=== PATIENT | female | born 1995 | race Caucasian/White ===

== ENCOUNTER 2019-05-08 08:02 | Outpatient (CLI) | payer OTHER, SELFPAY ==
--- NOTE | 2019-05-15 23:57 | SLEEP_ITS ---
Overnight Nocturnal Polysomnogram DATE OF STUDY: 05/08/2019 ORDERING PHYSICIAN: Luli Suárez M.D. REASON FOR THE STUDY: Prior home sleep test on February 27, 2019 without significant sleep-disordered breathing, the patient having significant symptoms suggestive of narcolepsy with daytime somnolence. HISTORY: This patient is a 23-year-old female, 64 inches tall, weighing 190 pounds with a body mass index of 32.6. On a prior home sleep test February 27, 2019, she had an apnea-hypopnea index of 3.7 with a minimum desaturation of 89%. This test was performed due to complaints of nonrestorative sleep, severe nightmares, and inability to return to sleep at night, multiple nighttime awakenings with rare snoring. She complained of occasionally sweating excessively at night and noticing her heart pounding irregularly at night on occasion. She had occasional episodes of falling asleep during the day, frequently involuntarily, but only rarely while driving. She occasionally has fallen asleep during physical effort. She frequently has loss of muscle tone with strong emotion and constantly has daytime difficulties due to excessive sleepiness. 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 She frequently has vivid dreamlike scenes upon awakening or falling asleep. She complained of kicking at night and constantly having crawling and aching feelings in her legs. She constantly grinds her teeth at night and is bothered by pain during the day. Symptoms included fatigue, memory problems, insomnia, nightmares, headaches, and feelings of tension. Normal bedtime is 9 p.m. taking a half hour to fall asleep or up to an hour. She typically wakes 5 to 6 times at night on average for 20 minutes to an hour. While awake, she will lie in bed and try to fall asleep again. She awakens in the morning at 6 a.m. She estimates 5 hours of sleep at night, although she is in bed for 9 hours. She is too tired to socialize. She does take naps and a short nap is not refreshing. She is drowsy in the morning for 3 hours or longer. MEDICAL COMORBIDITIES: No chronic medical comorbidities. MEDICATIONS: 1. [id number] melatonin 4 gummies nightly. 2. Diphenhydramine 25 mg 2 nightly. HABITS: Never smoked tobacco. Fourteen ounces of caffeine per day. No alcohol or recreational drugs. DESCRIPTION OF THE STUDY: On the Register Sleepiness Scale, her score was 17. This was conducted as a full night attended nocturnal polysomnogram using the [place] multiple channel system including EOG, EEG, submental EMG, EKG, nasal and oral airflow using thermistors and nasal pressure sensors, chest and abdominal belts, body position data, pulse oximetry, and video monitoring. The study was scored using [facility] guidelines. Duration of this study was 452 minutes. Sleep time was 433.8 minutes. Sleep efficiency was 95.8%. Sleep latency was 5.9 minutes. REM latency was 101 minutes. She had 20 awakenings and spent 2.9% of the study awake after sleep onset, 13 minutes. Sleep architecture showed 4.1% stage I sleep, 49.1% stage II sleep, 24.1% stage III sleep, and 19.8% stage REM. Sleep architecture was overall fairly normal. She had 4 REM cycles and several shifts between sleep and wakefulness. However, overall the sleep architecture was generally normal. The apnea-hypopnea index was 1.5. The obstructive index was 1.2 and the central index was 0.1. She had 1 obstructive hypopnea in supine REM for an index of 2.3, 1 mixed apnea and 4 obstructive hypopneas in non-supine REM for an index of 4.8, 2 obstructive hypopneas in supine non-REM for an index of 2.1 and 2 obstructive hypopneas in non-supine non-REM for an index of 0.6. The supine index is 2.2. Non-supine index is 1.4. Lowest desaturation 91%. She spent no time below 88
== END 2019-05-08 08:03 | disposition home or self-care (01) ==
LOC: ANHCSM 08:02
PROVIDERS: PCP Family Medicine; Visit Provider Family Medicine
DX: G47.9 Sleep disorder, unspecified (principal)
CPT/HCPCS: 95810

== ENCOUNTER 2019-08-08 19:10 | Emergency (ER) | payer OTHER, SELFPAY ==
[2019-08-08 19:29] VITALS: BP 137/73; PULSE 97; RESP 16; TEMP 37.5; O2SAT 99
--- NOTE | 2019-08-08 19:38 | ED.BACK ---
HPI - Back Pain/Injury General Chief Complaint: Back Pain/Injury Stated Complaint: back spasms Time Seen by Provider: 08/08/19 19:30 Source: patient Mode of arrival: ambulatory Limitations: no limitations History of Present Illness HPI Narrative: Althea Allan is a 23 yo female with PMH chronic back pain who comes to express care with back spasms. She has a telemedicine conference with her doctor tomorrow but is unable to tolerate the pain until then, unable to get a massage due to covid situation. Has been on has been unable to manage pain with Advil, ice Related Data Home Medications Medication Instructions Recorded Confirmed etonogestrel [Nexplanon] 1 implant SUBDERMAL ONCE 08/08/19 08/08/19 Allergies Allergy/AdvReac Type Severity Reaction Status Date / Time No Known Allergies Allergy Verified 08/08/19 19:35 Review of Systems Review of Systems: Narrative: CONSTITUTIONAL: Denies fever, chills, sweats. EYES: Denies visual changes, redness, discharge. ENT: Denies rhinorrhea, congestion, sore throat, otalgia. CARDIOVASCULAR: Denies chest pain, palpitations, edema. RESPIRATORY: Denies dyspnea, wheezing, cough GASTROINTESTINAL: Denies abdominal pain, nausea, vomiting, diarrhea. GENITOURINARY: Denies dysuria, hematuria, abnormal discharge SKIN: Denies rash or itching. NEUROLOGIC: Denies numbness, or focal weakness. PSYCHIATRIC: Denies anxiety or depression. Back: Tender, obvious spasming at right thoracic level PMFSH Past Medical History Medical History (Updated 08/08/19 @ 19:46 by Ethel Melissa CNP) Endometriosis Insomnia Family History Family History Grandparent Family history of mental disorder Mother Family history of mental disorder Family history of bipolar disorder Family history of alcoholism Family history of seizure disorder Father Family history of alcoholism Family history of cardiovascular disease Social History Social History Smoking status: Never smoker Second hand tobacco smoke exposure: No Alcohol intake: current Gender identity (if verbalized by the patient): Female Comments At time of signature, I agree with nursing past medical, surgical, social and family history. There is no relevant family history pertinent to the presenting complaint. Exam Narrative: Exam Narrative: GENERAL: This is a well-nourished, well-developed patient, in moderate distress. HEAD: normocephalic, atraumatic. EYES: Sclera clear/white. Vision is grossly intact. EARS: External ears normal, . Hearing grossly intact. NOSE: External nose normal without nasal discharge, nares without redness, no rhinorrhea. THROAT: Mucous membranes moist, posterior pharynx NECK: Neck supple, CARDIOVASCULAR: Regular rate and rhythm without murmurs, gallops, or rubs. RESPIRATORY: Clear to auscultation. Breath sounds equal bilaterally. No wheezes, rales, or rhonchi. GASTROINTESTINAL: Abdomen soft, SKIN: warm, intact with no suspicious lesions or rash, good texture and turgor. NEURO: awake, alert, and oriented to person, place and time. There were no obvious focal neurologic abnormalities. Steady gait EXTREMITIES: Normal range of motion. BACK:tender at right thoracic level , spasming, without deformity Course Course Emergency Course: Patient started on muscle relaxant baclofen, will talk with in the morning Vital Signs Vital signs: Vital Signs Temperature 99.5 F 08/08/19 19:29 Pulse Rate 97 08/08/19 19:29 Respiratory Rate 16 08/08/19 19:29 Blood Pressure 137/73 08/08/19 19:29 Pulse Oximetry 99 08/08/19 19:29 Temperature 99.5 F 08/08/19 19:29 Pulse Rate 97 08/08/19 19:29 Respiratory Rate 16 08/08/19 19:29 Blood Pressure 137/73 08/08/19 19:29 Pulse Oximetry 99 08/08/19 19:29 MDM - Back Pain/Injury Differential Diagnosis Differential diag
== END 2019-08-08 19:52 | disposition home or self-care (01) ==
PROVIDERS: Emergency Provider Nurse Practitioner; PCP Family Medicine
DX: M62.830 Muscle spasm of back (principal); N80.9 Endometriosis, unspecified
CPT/HCPCS: 99213; G0463

== ENCOUNTER 2019-08-14 17:31 | Outpatient (CLI) | payer OTHER, SELFPAY ==
--- NOTE | ~2019-08-14 | XR_ITS ---
EXAMINATION: XR thoracic spine 3V DATE: 08/14/2019 18:02 INDICATION: Dorsalgia unspecified TECHNIQUE: AP, lateral and lateral swimmer's views of the thoracic spine were obtained. COMPARISON: None. FINDINGS: There is no fracture, dislocation, or subluxation. The vertebral body heights, alignment, a nd intervertebral disc spaces are normal. The paravertebral soft tissues are unremarkable. Calcified right hilar and subcarinal lymph nodes are consistent with old granulomatous disease. IMPRESSION: 1. Unremarkable thoracic spine radiographs. Reviewed, dictated and finalized at location A.
== END 2019-08-14 17:32 | disposition home or self-care (01) ==
LOC: ANHIMG 17:37
PROVIDERS: PCP Family Medicine; Visit Provider Family Medicine
DX: M54.9 Dorsalgia, unspecified (principal); G89.29 Other chronic pain
CPT/HCPCS: 72072

== ENCOUNTER 2020-12-28 16:35 | Outpatient (CLI) | payer OTHER, SELFPAY ==
--- NOTE | ~2020-12-28 | US_ITS ---
EXAMINATION: US thyroid DATE: 12/28/2020 16:54 INDICATION: Iodine deficiency related diffuse endemic goiter. TECHNIQUE: Multiple ultrasound images of the thyroid were obtained. COMPARISON: None. FINDINGS: The right thyroid lobe measures 4.3 x 1.4 x 1.7 cm. The left thyroid lobe measures 4.1 x 1.4 x 1.2 c m. There is normal echotexture and echogenicity throughout the thyroid gland. No discrete nodules id entified. Normal vascular flow is present. IMPRESSION: 1. Normal thyroid. Reviewed, dictated and finalized at location A. IMPRESSION: 1. Normal thyroid.
== END 2020-12-28 16:36 | disposition home or self-care (01) ==
LOC: ANHIMG 16:39
PROVIDERS: PCP Family Medicine; Visit Provider Family Medicine
DX: E01.0 Iodine-deficiency related diffuse (endemic) goiter (principal)
CPT/HCPCS: 76536

== ENCOUNTER → 2021-04-03 08:49 | Outpatient (CLI) | payer OTHER, SELFPAY ==
[2021-04-03 13:57] LABS: Influenza Control Positive
[2021-04-04 16:24] LABS: SARS-CoV-2 RNA PCR Negative
== END ==
PROVIDERS: PCP Family Medicine; Visit Provider Physician Assistant
DX: R50.9 Fever, unspecified (principal); Z20.822 Contact with and (suspected) exposure to COVID-19
CPT/HCPCS: 87804; C9803; U0003; U0005

== ENCOUNTER 2022-04-05 08:56 | Outpatient (CLI) | payer OTHER, SELFPAY | END 2022-04-05 08:57 | disposition home or self-care (01) | PROVIDERS: PCP Family Medicine; Visit Provider Obstetrics & Gynecology | DX: N80.9 Endometriosis, unspecified (principal); Z01.818 Encounter for other preprocedural examination | CPT/HCPCS: 36415; 86850; 86900; 86901 ==

== ENCOUNTER 2022-04-13 01:40 | Day surgery (SDC) | payer OTHER, SELFPAY ==
[2022-04-01 11:15] VITALS: BMI 35.9
--- NOTE | 2022-04-01 11:21 | PC.NURSE ---
Report to the Outpatient Waiting Room, entrance under the green pavilion located off [facility], at time 10:00 on date 04/13/22. Planned Procedure Time: 12:00. Time changes happen often and if your time is changed the preop area will call you the afternoon before. - You and your visitor will be asked to self-screen and do not enter if you have any COVID symptoms. - Only one visitor is requested with a max of two and NO children visitors are allowed at this time. - The patient visitor may be requested to leave or wait in car when not with patient due to distancing restrictions. - A mask is REQUIRED within the hospital. Patients may have clear liquids (water, carbonated beverages, clear teas, apple juice) until 3 hours prior to surgery (9:00) with a maximum of 20 ounces. - No food from midnight until time of surgery Take the following medications with a SIP of water the morning of surgery: NONE Medications to discontinue per physician: VITAMIN Date to take last dose: 04/09/22 Please no make-up, nail azeri, hairspray, perfume, deodorant, or body powder the day of surgery. No jewelry (including any body piercings) or valuables the day of surgery, leave them at home. Please take a shower or bath the night before, or the morning of, surgery with an antibacterial soap. Wear comfortable, loose fitting clothing. - Jewelry must be removed prior to entering the operating room. Rings and piercings that are not removed may be cut off. - The hospital will not accept responsibility for valuables. - Please leave all valuables, including medications, at home the day of surgery. If you are going home after surgery, a licensed cement mixer driver must drive you home. - NO public transportation without another adult if you receive anesthesia. - We recommend that an adult stay with you for 24 hours following discharge. - We also recommend that you do not drive, make important decision, drink alcoholic beverages, or take any drugs that were not prescribed by your health care provider for at least 24 hours after your discharge time. Follow any additional instructions given to you from your surgeon. If you or anyone in your household have experienced Covid symptoms in the past week, please notify your surgeon or the nurse liaison at the phone number below for possible testing. Telephone instructions given to PT - ROXANNE SHENE and asked if any additional questions and then verbalized understanding. Patient advised to call surgeon office or pre surgery nurse liaison [phone] if any additional questions.
--- NOTE | 2022-04-12 13:08 | P.PNAN_ITS ---
Anes - Initial Pre Proc Eval Procedure: Operation Date: 04/13/22 12:00 Proposed Procedures p Robotic Assisted Hysterectomy with Bilateral Salpingo-oophorectomy - Cade Caldwell MD Date/Time: 04/12/22 13:08 Surgeon: Cade Caldwell MD Pre Op Diagnosis: Endo of Pelvic Peritoneum Patient Data Age: 26 Gender: F Height: 1.61 m Weight: 93.5 kg Allergies Allergy/AdvReac Type Severity Reaction Status Date / Time escitalopram [From Lexapro] AdvReac Mild Other Verified 04/13/22 10:18 Home Medications Medication Instructions Recorded Confirmed Type etonogestrel 68 mg subdermal 1 implant subdermal ONCE 08/08/19 04/01/22 History implant (Nexplanon) drospirenone (contraceptive) 4 mg 1 tablet PO DAILY 01/04/22 04/01/22 History (28) tablet (Slynd) rizatriptan 10 mg tablet See Rx Instructions PO .COMPLEX #9 01/04/22 04/01/22 Rx tabs topiramate 25 mg tablet (Topamax) 75 mg PO DAILY #90 tabs 03/02/22 04/01/22 Rx multivitamin 1 tablet PO DAILY 04/01/22 04/13/22 History Patient hx anesthesia problems: none Family hx anesthesia problems: none Results Review: All pre-operative results and documents have been reviewed as part of the pre- operative evaluation. [facility] Past Medical History Medical History Bipolar 1 disorder Endometriosis Hypersomnia Insomnia Obesity OCD (obsessive compulsive disorder) Plantar fasciitis PLMD (periodic limb movement disorder) Thyromegaly Family History Family History Grandparent Family history of mental disorder Mother Family history of mental disorder Family history of bipolar disorder Family history of alcoholism Family history of seizure disorder Father Family history of alcoholism Family history of cardiovascular disease Social History Social History (Updated 01/04/22 @ 11:02 by Mana Mccarty [facility]) Smoking status: Never smoker Second hand tobacco smoke exposure: No Alcohol intake: current Alcohol use details: 1/MONTH Substance use: never Substance use type: does not use Living arrangements: with family Gender identity (if verbalized by the patient): Female Spiritual care concerns: No Anes - Eval Final PreProcedure Day of Procedure 04/12/22 13:08 Patient weight: obese Heart: regular rate and rhythm Lungs: clear to auscultation Airway: Mallampati scale class II Neurological: alert and oriented Last oral intake: >/= 8 hours ASA classification: II Emergent: no Anesthetic plan: proceed Anesthesia type and monitoring: general ETT and standard monitoring Results Review: All pre-operative results and documents have been reviewed as part of the pre- operative evaluation. Informed Consent: The patient's anesthetic plan and its attendant risks and benefits were di scussed with the patient/family/POA. Questions were solicited and answers provided to the satisfaction of the patient/family/POA.
[2022-04-13] VITALS (11 sets, daily range): BP systolic 123–140; BP diastolic 65–82; PULSE 64–84; RESP 12–16; TEMP 36.3–36.4; O2SAT 95–100; BMI 34.8
[2022-04-13] MEDS: LACTATED RINGERS 1,000 ML 30 ML IV CONT ×2 (10:40→14:55)
[2022-04-13] MEDS: ACETAMINOPHEN 500 MG TABLET 1000 MG PO (10:47)
[2022-04-13] MEDS: KETOROLAC 15 MG/ML VIAL (*BKC) IV PUSH (10:48)
--- NOTE | 2022-04-13 10:50 | WPDHPUPDATE1 ---
History and Physical Update Update Date/Time: 04/13/22 10:50 History and Physical has been reviewed, including an updated exam of the patient. There are NO changes in the patient's condition. Risks, benefits, and alternatives have been discussed and questions answered. Patient agrees to proceed with procedure.
--- NOTE | 2022-04-13 14:52 | W.PM.PROC2 ---
Procedure Note - Detailed Date of Procedure 04/13/22 Pre-op Diagnosis Endo of Pelvic Peritoneum, pelvic pain Post-op Diagnosis Same (Pelvic adhesions) Procedure Performed Robot assisted Total hysterectomy with bilateral salpingo-oophorectomy . And adhesiolysis-1 hour Surgeon Cade Caldwell MD Anesthesia General Indications endometriosis, pelvic pain Findings normal-appearing uterus, left ovary and fallopian tube were scarred down the left pelvic sidewall and to the rectum, endometrial implants throughout the Pelvis. Scarring throughout the posterior cul-de-sac. normal right tube and ovary. Description of Procedure This patient was taken to the operating room. She was prepped and draped in the dorsal lithotomy position after induction of general anesthesia. The uterine manipulator and Lito cup were placed. This was done with a speculum and tenaculum. The speculum was placed. The cervix was grasped with a tenaculum. The stay sutures were placed at 3 and 9:00 a.m.. The stay sutures of 0 Vicryl were tied to the appropriately Size scope after it was slipped around the cervix.. The tip of the CHRIS manipulator was placed in the intrauterine cavity. The cup was slid into place around the cervix and into the fornices. It was locked into place. The sutures were then wrapped around the handle and tied under tension. A 8 mm skin incision was made in the left upper quadrant the abdomen. a 5 mm Visiport trocar was inserted into abdominal cavity and pneumoperitoneum was achieved. A 8 mm supraumbilical incision was made and a 8 mm trocar was inserted into the intrauterine cavity under direct visualization of the scope. an 8 mm incision was made in the right upper quadrant of the abdomen and an 8 mm robotic trocar was placed the inter uterine cavity under direct visualization the scope. An 11 mm trocar was inserted in the right upper quadrant of the abdomen rectal is a cystoscope after an incision was made there as well. The robot was docked. Electronic Orientation of the robot was performed. 1 arm adhesiolysis was performed. This was done to separate the ovary and the fallopian tube on the left side from the pelvic sidewall overlying the ureter and the rectum. This was done with careful dissection , using cautery, scissors, and blunt dissection. the ureter was dissected out through this area. Ultimately the fallopian tube, ovary, were freed from the left pelvic sidewall and rectum. Bilateral ureteral lysis was performed. This was done from the pelvic brim down to the uterine artery. This was done with careful dissection using sharp and blunt dissection.Bilateral salpingo-oophorectomy was performed. The bilateral infundibulopelvic ligaments were cauterized thoroughly and transected after visualization of the ureter passing over the pelvic brim. In stepwise fashion around the ovary the mesosalpinx was cauterized transected. The Fallopian tube tissue/ mesosalpinx was cauterized transected a stepwise fashion medially to the cornua of the uterus. the tube was transected at the cornua and cauterized thoroughly. The bilateral tubes and ovaries were taken out through the large air lock port. Then In a stepwise fashion along the lateral aspects of the uterus the round ligament and broad ligaments were cauterized transected down to the level of the uterine arteries. A bladder flap was created in the bladder was moved distally to the end of the cervix and over the Lito cup. The bilateral uterine arteries were cauterized and transected. Colpotomy was then performed. In a circumferential fashion the vagina was transected using unipolar cautery. The incision was made down on the Lito cup. The uterus and cervix were taken out through the vagina. A pneumo occluder was placed in the vagina. The vaginal cuff was closed with a 0 V lock suture in a running fashion. The pelvis was irrigated with copious amounts antibiotic irrigation. The ureters were again examined a
[2022-04-13] MEDS: fentaNYL CITRATE INJ (*CRX) 100 MCG/2 ML VIAL 25 MCG IV PUSH ×6 (15:11→16:14)
--- NOTE | 2022-04-13 16:53 | PC.NURSE ---
1631-This patient, Althea Allan, was admitted to OB 2nd Floor Room 283-00. Patient/family oriented to hospital policies and general routines including ID bracelet, bed and alarms, visiting hours, pain management, procedures, bathroom and other care routines, personal items, smoking policy, room service/diet, and visiting hours. Information on how to activate the Rapid Response Team has been discussed. Patient/Family are encouraged to report perceived risks to care and to ask questions if they do not understand what they are told or what they should do.
[2022-04-13] MEDS: KETOROLAC 30 MG/ML VIAL (*BKC) IV PUSH (16:57)
[2022-04-13] MEDS: DEXTROSE 5%/0.45% SOD CHL 1,000 ML 125 ML IV CONT (16:58)
[2022-04-13] MEDS: HYDROcodone/acetaminophen (*CRX) 5-325 MG TABLET 1 TAB PO (19:16)
[2022-04-13] MEDS: TOPIRAMATE 25 MG TABLET 75 MG PO (21:53)
[2022-04-13] MEDS: HYDROcodone/acetaminophen (*CRX) 10-325 MG TABLET 1 TAB PO (21:53)
[2022-04-13] MEDS: ONDANSETRON INJ 4 MG/2 ML VIAL IV PUSH (21:55)
[2022-04-14] MEDS: IBUPROFEN 600 MG TABLET PO ×2 (02:20→09:21)
[2022-04-14] MEDS: HYDROcodone/acetaminophen (*CRX) 5-325 MG TABLET 1 TAB PO ×3 (02:20→10:21)
[2022-04-14 02:22] VITALS: BP 110/58; PULSE 66; RESP 18; TEMP 36.9
[2022-04-14 08:00] VITALS: BP 116/61; PULSE 75; RESP 17; TEMP 36.9; O2SAT 100
--- NOTE | 2022-04-14 12:39 | PM.GYNPNOP ---
COUNSELOR/ART THERAPIST - A/P Postoperative Procedures: Procedures Operation Date: 04/13/22 12:00 Actual Procedure Side Surgeon p Robotic Assisted Hysterectomy with Bilateral Salpingo-oophorectomy Bilateral Cade Caldwell MD Postoperative day: 1 Postoperative status: doing well Postoperative plan: see orders Time Spent With Patient Time: Total time spent is greater than 50% in coordination of care (as documented) at patient's floor/unit and/or counseling patient: Time with patient: less than 15 minutes COUNSELOR/ART THERAPIST- PN:Subj Post-Op Subjective Date/time seen: 04/14/22 12:39 Subjective: patient reports feeling better, patient has no complaints and pain is well controlled Exam Const: General: healthy appearing, comfortable and no acute distress Resp: Auscultation: clear to auscultation bilaterally, no rales, no rhonchi and no wheezes Cardio: Rate: regular rate Heart sounds: no click, no murmurs and no rubs GI: Inspection: non-distended Auscultation: normal bowel sounds Extrem: General: normal to inspection, no pedal edema and no calf tenderness COUNSELOR/ART THERAPIST - PN: Obj Data Vital Signs Vital Signs: Vital Signs - 24 hr 04/13/22 14:55 04/13/22 15:10 04/13/22 15:25 Temperature 97.3 F L Pulse Rate 81 64 68 Respiratory Rate 14 14 14 Blood Pressure 136/72 140/76 130/74 Pulse Oximetry 100 98 100 Oxygen Delivery Simple Face Mask Simple Face Mask Simple Face Mask Oxygen Flow Rate 6 6 6 04/13/22 15:35 04/13/22 15:40 04/13/22 15:55 Temperature Pulse Rate 77 84 Respiratory Rate 12 14 Blood Pressure 133/82 135/76 Pulse Oximetry 95 100 Oxygen Delivery Room Air Room Air Room Air Oxygen Flow Rate 04/13/22 16:10 04/13/22 16:21 04/13/22 17:00 Temperature Pulse Rate 67 68 74 Respiratory Rate 12 12 16 Blood Pressure 130/75 132/75 124/65 Pulse Oximetry 96 96 97 Oxygen Delivery Room Air Room Air Oxygen Flow Rate 04/13/22 17:21 04/13/22 17:00 04/13/22 21:45 Temperature 97.4 F L 97.5 F L Pulse Rate 74 78 Respiratory Rate 16 16 Blood Pressure 123/67 Pulse Oximetry 97 Oxygen Delivery Room Air Oxygen Flow Rate 04/14/22 02:22 04/14/22 08:00 04/14/22 08:00 Temperature 98.4 F 98.4 F Pulse Rate 66 75 75 Respiratory Rate 18 17 17 Blood Pressure 110/58 L 116/61 Pulse Oximetry 100 100 Oxygen Delivery Room Air Oxygen Flow Rate Intake/Output Intake/Output: Intake & Output 04/11/22 04/12/22 04/13/22 04/14/22 23:59 23:59 23:59 23:59 Intake Total 2475 1040 Output Total 1440 300 Balance 1035 740 Meds/Results Medications: Active Medications Generic Name Dose Route Start Last Admin Trade Name Freq PRN Reason Stop Dose Admin Hydrocodone Bitart/Acetaminophen 1 tab 04/13/22 16:21 04/14/22 10:21 Hydrocodone/Acetaminophen (*Crx) 5-325 Mg Tablet PO 1 tab Q3H PRN Administration Pain Rated 5 or Less Hydrocodone Bitart/Acetaminophen 1 tab 04/13/22 16:21 04/13/22 21:53 Hydrocodone/Acetaminophen (*Crx) 10-325 Mg Tablet PO 1 tab Q3H PRN Administration Pain Rated 6 or Greater Ibuprofen 600 mg 04/13/22 16:21 04/14/22 09:21 Ibuprofen 600 Mg Tablet PO 600 mg Q6H PRN Administration Cramping Ketorolac Tromethamine 30 mg 04/13/22 16:21 04/13/22 16:57 Ketorolac 30 Mg/Ml Vial (*Bkc) IV PUSH 04/18/22 16:20 30 mg Q6H PRN Administration Pain Rated 4-6 Naloxone HCl 0.1 mg 04/13/22 16:21 Naloxone Hcl 0.4 Mg/Ml Vial IV PUSH Q2M PRN Respiratory rate less than 10 Ondansetron HCl 4 mg 04/13/22 16:21 04/13/22 21:55 Ondansetron Inj 4 Mg/2 Ml Vial IV PUSH 4 mg Q6H PRN Administration Nausea And Vomiting Rizatriptan Benzoate 10 mg 04/13/22 16:21 Rizatriptan Benzoate 10 Mg Tablet PO Q2H PRN Headache Topiramate 75 mg 04/13/22 21:00 04/13/22 21:53 Topiramate 25 Mg Tablet PO 75 mg HS NEVA Administration
== END 2022-04-14 13:22 | disposition home or self-care (01) ==
LOC: ANHSURGERY 10:03 → ANHOB2 16:28
PROVIDERS: PCP Family Medicine; Visit Provider Obstetrics & Gynecology
PROC: (CPT 58571; principal; 2022-04-13 12:00)
DX: N80.30 Endometriosis of pelvic peritoneum, unspecified (principal); N73.6 Female pelvic peritoneal adhesions (postinfective); R10.2 Pelvic and perineal pain; E66.9 Obesity, unspecified; Z68.34 Body mass index [BMI] 34.0-34.9, adult
CPT/HCPCS: 58571; S2900; 36415; 86850; 86900; 86901; 88307; 99199; A9270; J1100; J1170; J1885; J2250; J2405; J2704; J2710; J3010; J7030; J7120

== ENCOUNTER 2022-07-04 23:32 | Emergency (ER) | payer OTHER, SELFPAY ==
[2022-07-04 23:39] VITALS: BP 132/83; PULSE 78; RESP 16; TEMP 36.7; O2SAT 100
--- NOTE | 2022-07-05 00:30 | ED.GENADULT ---
HPI - General Adult General Chief complaint: Unspecified <Domo Zelaya PA-C - Last Filed: 07/05/22 02:48> Stated complaint: multiple complaints <Domo Zelaya PA-C - Last Filed: 07/05/22 02:48> Time Seen by Provider: 07/05/22 00:16 <ANTONETTE Ellis Last Filed: 07/05/22 02:48> Source: patient <ANTONETTE Ellis Last Filed: 07/05/22 02:48> Mode of arrival: ambulatory <ANTONETTE Ellis Last Filed: 07/05/22 02:48> Limitations: no limitations <ANTONETTE Ellis Last Filed: 07/05/22 02:48> History of Present Illness HPI narrative: This is a 26-year-old female with PMH of endometriosis, OCD, bipolar type I, obesity, chronic back pain who presents to the ED with multiple complaints. Reports bilateral ankle pain that radiates up into the hips. Also complains of nausea, vomiting, diarrhea that has resolved. Also complains of fatigue. She notes a recent boil in her groin and started to research staph infections; wanted to be evaluated for possible toxic shock syndrome. States she is feeling anxious about this. Denies fevers, abdominal pain, chest pain, shortness of breath. Surgical history hysterectomy in March. <ANTONETTE Ellis Last Filed: 07/05/22 02:48> Related Data Home medications: Home Medications Medication Instructions Recorded Confirmed etonogestrel 68 mg subdermal 1 implant subdermal ONCE 08/08/19 04/01/22 implant (Nexplanon) drospirenone (contraceptive) 4 mg 1 tablet PO DAILY 01/04/22 04/01/22 (28) tablet (Slynd) multivitamin 1 tablet PO DAILY 04/01/22 04/13/22 <ANTONETTE Ellis Last Filed: 07/05/22 02:48> Allergies/adverse reactions: Allergies Allergy/AdvReac Type Severity Reaction Status Date / Time escitalopram [From Lexapro] AdvReac Mild Other Verified 07/05/22 00:43 <Domo Zelaya PA-C - Last Filed: 07/05/22 02:48> Review of Systems Review of Systems: CONSTITUTIONAL: Endorses fatigue. Denies fever, chills, or sweats. EYES: Denies visual changes, redness, or discharge. ENT: Denies rhinorrhea, congestion, sore throat, or otalgia. CARDIOVASCULAR: Denies chest pain, palpitations, or edema. RESPIRATORY: Denies cough or dyspnea. GASTROINTESTINAL: See HPI GENITOURINARY: Denies dysuria or hematuria. SKIN: Denies rash or itching. MUSCULOSKELETAL: See HPI NEUROLOGIC: Denies headache, numbness, dizziness, or weakness. PSYCHIATRIC: Denies anxiety or depression. <Domo Zelaya PA-C - Last Filed: 07/05/22 02:48> PMFSH Past Medical History Medical History: Medical History Bipolar 1 disorder Endometriosis Hypersomnia Insomnia Obesity OCD (obsessive compulsive disorder) Plantar fasciitis PLMD (periodic limb movement disorder) Thyromegaly <Domo Zelaya PA-C - Last Filed: 07/05/22 02:48> Family History Family History: Family History Grandparent Family history of mental disorder Mother Family history of mental disorder Family history of bipolar disorder Family history of alcoholism Family history of seizure disorder Father Family history of alcoholism Family history of cardiovascular disease <Domo Zelaya PA-C - Last Filed: 07/05/22 02:48> Social History Social History: Social History (Updated 01/04/22 @ 11:02 by Mana Mccarty [facility]) Smoking status: Never smoker Second hand tobacco smoke exposure: No Alcohol intake: current Alcohol use details: 1/MONTH Substance use: never Substance use type: does not use Living arrangements: with family Gender identity (if verbalized by the patient): Female Spiritual care concerns: No <Domo Zelaya PA-C - Last Filed: 07/05/22 02:48> Exam Narrative: GENERAL: Well-appearing, well-nourished, and in no acute distress. HEAD: Normocephalic, atraumatic. EYES: PERRLA and EOMI. ENT: Nares clear, no r
[2022-07-05 00:44] VITALS: BP 135/85; PULSE 80; RESP 18; O2SAT 99
[2022-07-05 01:42] LABS: Basophils Absolute Auto 0.1 K/mm3 (0.0-0.1); Basophils Percent Auto 0.5 % (0.2-1.2); Eosinophils Absolute Auto 0.3 K/mm3 (0-0.3); Eosinophils Percent Auto 3.2 % (0-4.4); Hematocrit 40.3 % (37.0-47.0); Hemoglobin 13.1 g/dL (12.0-15.0); Immature Granulocyte Absolute 0.03 K/mm3 (0.00-0.031); Immature Granulocyte Percent A 0.3 % (0-0.5); Lymphocytes Absolute Auto 2.95 K/mm3 (0.9-3.2); Lymphocytes Percent Auto 28.4 % (18.3-44.2); Mean Corpuscular HGB Conc 32.5 g/dl (32-36); Mean Corpuscular Hemoglobin 29.8 pg (26-34); Mean Corpuscular Volume 91.6 fl (80-100); Mean Platelet Volume 9.7 fl (7.4-10.4); Monocytes Absolute Auto 0.7 K/mm3 (0.1-0.6); Monocytes Percent Auto 6.7 % (2.6-8.5); Neutrophils Absolute Auto 6.3 K/mm3 (1.3-6.7); Neutrophils Percent Auto 60.9 % (45.5-73.1); Platelet Count Result 299 k/mm3 (150-375); Red Cell Distribution Width 13.4 % (11.5-14.5); White Blood Count 10.4 K/mm3 (4.5-10.0)
[2022-07-05 01:57] LABS: Anion Gap 7 mmol/L (8-16); Blood Urea Nitrogen 13 mg/dL (7-17); Calcium 9.2 mg/dL (8.4-10.2); Carbon Dioxide 26 mmol/L (22-30); Chloride 107 mmol/L (98-107); Estimated CRCL calculation 155 ml/min; Estimated Glomerular Filt Rate > 60; Glucose 94 mg/dL (65-110); Potassium 4.1 mmol/L (3.4-5.0); Sodium 140 mmol/L (137-145)
== END 2022-07-05 02:30 | disposition home or self-care (01) ==
PROVIDERS: Emergency Provider Physician Assistant; PCP Family Medicine
DX: R53.83 Other fatigue (principal); F31.9 Bipolar disorder, unspecified; F42.8 Other obsessive-compulsive disorder; Z79.891 Long term (current) use of opiate analgesic
CPT/HCPCS: 36415; 80048; 85025; 99283

== ENCOUNTER 2022-07-08 09:10 | Emergency (ER) | payer OTHER, SELFPAY ==
--- NOTE | ~2022-07-08 | US_ITS ---
Duplex Sonography of the bilateral lower extremities: Indication: Pain Sagittal and transverse B-mode images as well as color-flow imaging were performed on the right and l eft femoral and popliteal veins. B-mode examination was done without and with compression in the tra nsverse plane. There is good visualization of the bilateral common femoral, proximal profunda femora l, superficial femoral, greater saphenous, and popliteal veins. Normal flow was seen on color-flow im aging. Normal compressibility was demonstrated. Visualized calf veins are patent bilaterally. Impression: No evidence of deep vein thrombosis involving the bilateral femoral, greater saphenous, s uperficial femoral, or popliteal veins. Reviewed, dictated and finalized at location M. Impression: No evidence of deep vein thrombosis involving the bilateral femoral , greater saphenous, superficial femoral, or popliteal veins.
[2022-07-08 09:19] VITALS: BP 144/76; PULSE 71; RESP 16; TEMP 36.6; O2SAT 100
--- NOTE | 2022-07-08 10:53 | ED.EXTPRO ---
HPI - Extremity Problem General Chief complaint: Extremity Problem,Nontraumatic Stated complaint: severe pain in ankles and lower calves Time Seen by Provider: 07/08/22 10:37 History of Present Illness HPI Narrative: 26-year-old female with a history of OCD, bipolar, chronic back pain reports for evaluation of bilateral lower leg pain for the past week. Patient reports the pain is in her feet, ankles, calves and thighs. States the pain has been waking her up at night and describes it as a dull ache with intermittent sharp pains. She reports taking her 's tizanidine with some relief and Motrin. Denies lower extremity edema, chest pain, dyspnea, fevers, rashes, trauma or falls. Related Data Home Medications Medication Instructions Recorded Confirmed etonogestrel 68 mg subdermal 1 implant subdermal ONCE 08/08/19 04/01/22 implant (Nexplanon) drospirenone (contraceptive) 4 mg 1 tablet PO DAILY 01/04/22 04/01/22 (28) tablet (Slynd) multivitamin 1 tablet PO DAILY 04/01/22 04/13/22 Allergies Allergy/AdvReac Type Severity Reaction Status Date / Time escitalopram [From Lexapro] AdvReac Mild Other Verified 07/08/22 10:07 Review of Systems Review of Systems: CONSTITUTIONAL: Denies fever, chills EYES: Denies visual changes, redness, or discharge. ENT: Denies rhinorrhea, congestion, sore throat, or otalgia. CARDIOVASCULAR: Denies chest pain, palpitations, or edema. RESPIRATORY: Denies cough or dyspnea. GASTROINTESTINAL: Denies abdominal pain, nausea, vomiting, or diarrhea. GENITOURINARY: Denies dysuria or hematuria. SKIN: Denies rash or itching. MUSCULOSKELETAL: See HPI NEUROLOGIC: Denies headache, numbness, dizziness, or weakness. PSYCHIATRIC: Denies anxiety or depression. [facility] Past Medical History Medical History Bipolar 1 disorder Endometriosis Hypersomnia Insomnia Obesity OCD (obsessive compulsive disorder) Plantar fasciitis PLMD (periodic limb movement disorder) Thyromegaly Family History Family History Grandparent Family history of mental disorder Mother Family history of mental disorder Family history of bipolar disorder Family history of alcoholism Family history of seizure disorder Father Family history of alcoholism Family history of cardiovascular disease Social History Social History Smoking status: Never smoker Second hand tobacco smoke exposure: No Alcohol intake: current Alcohol use details: 1/MONTH Substance use: never Substance use type: does not use Living arrangements: with family Gender identity (if verbalized by the patient): Female Spiritual care concerns: No Exam Narrative: GENERAL: Well-appearing, well-nourished, and in no acute distress. Patient resting comfortably in the exam bed. She is pleasant and conversational. HEAD: Normocephalic, atraumatic. ENT: Nares clear, no rhinorrhea or epistaxis. NECK: Supple. No adenopathy or masses. CHEST: Clear to auscultation. No respiratory distress. No wheezes rales or rhonchi HEART: Regular rate and rhythm. No murmur heard. Normal peripheral pulses. ABDOMEN: Soft, nontender, nondistended, normal active bowel sounds. EXTREMITIES: No lower extremity edema. Generalized tenderness to palpation of bilateral lower extremities on the dorsal aspect of the feet, ankles, calves and thighs. No overlying skin changes, erythema, warmth or rashes. Full range of motion of extremities appreciated. Hip flexion, dorsiflexion and plantarflexion 5 out of 5 bilaterally. DP pulses 2+ bilaterally. Sensation intact throughout. SKIN: Warm, dry, no rash. NEURO: No focal deficits. Alert and oriented x3. PSYCH: Normal mood and affect. Course Vital Signs Vital signs: Vital Signs Temperature 98 F 07/08/22 09:19 Pulse Rate 71 07/08/22 09:19 Respirat
[2022-07-08] MEDS: ACETAMINOPHEN 500 MG TABLET 1000 MG PO (11:01)
[2022-07-08] MEDS: IBUPROFEN 600 MG TABLET PO (11:01)
[2022-07-08] MEDS: CYCLOBENZAPRINE HCL 10 MG TABLET PO (11:01)
== END 2022-07-08 11:16 | disposition home or self-care (01) ==
PROVIDERS: Emergency Provider Physician Assistant; PCP Family Medicine
DX: M79.605 Pain in left leg (principal); M79.604 Pain in right leg; N80.9 Endometriosis, unspecified; G47.10 Hypersomnia, unspecified; G47.00 Insomnia, unspecified; E66.9 Obesity, unspecified; Z68.35 Body mass index [BMI] 35.0-35.9, adult; M72.2 Plantar fascial fibromatosis; G47.61 Periodic limb movement disorder; E01.0 Iodine-deficiency related diffuse (endemic) goiter; F31.9 Bipolar disorder, unspecified
CPT/HCPCS: 93970; 99284; A9270

== ENCOUNTER 2022-07-10 19:56 | Emergency (ER) | payer OTHER, SELFPAY ==
[2022-07-10 19:59] VITALS: BP 130/98; PULSE 81; RESP 16; TEMP 36.8; O2SAT 100
--- NOTE | 2022-07-10 20:18 | ED.GENADULT ---
HPI - General Adult General Chief complaint: Unspecified Stated complaint: numbness/medication reaction Time Seen by Provider: 07/10/22 20:15 History of Present Illness HPI narrative: This is a 26-year-old female presenting ED with a chief complaint of facial numbness. Patient was recently started on Flexeril. She took a dose last night and then woke up this morning with some numbness/tingling in her tongue. Throughout the day the numbness and tingling of spread to her lips and cheek. She notes no swelling. Patient is also complaining of some chronic shoulder tightness and a headache behind her right ear. These are chronic symptoms for her. No signs of urticaria, wheezing GI symptoms or throat swelling. She denies numbness tingling weakness any other extremity. She has been seen in our emergency department multiple times over the last week for multiple complaints including generalized leg pain, concern for toxic shock syndrome, and a groin boil. Related Data Home Medications Medication Instructions Recorded Confirmed etonogestrel 68 mg subdermal 1 implant subdermal ONCE 08/08/19 04/01/22 implant (Nexplanon) drospirenone (contraceptive) 4 mg 1 tablet PO DAILY 01/04/22 04/01/22 (28) tablet (Slynd) multivitamin 1 tablet PO DAILY 04/01/22 04/13/22 Allergies Allergy/AdvReac Type Severity Reaction Status Date / Time escitalopram [From Lexapro] AdvReac Mild Other Verified 07/10/22 19:57 PMFSH Past Medical History Medical History Bipolar 1 disorder Endometriosis Hypersomnia Insomnia Obesity OCD (obsessive compulsive disorder) Plantar fasciitis PLMD (periodic limb movement disorder) Thyromegaly Family History Family History Grandparent Family history of mental disorder Mother Family history of mental disorder Family history of bipolar disorder Family history of alcoholism Family history of seizure disorder Father Family history of alcoholism Family history of cardiovascular disease Social History Social History Smoking status: Never smoker Second hand tobacco smoke exposure: No Alcohol intake: current Alcohol use details: 1/MONTH Substance use: never Substance use type: does not use Living arrangements: with family Gender identity (if verbalized by the patient): Female Spiritual care concerns: No Exam Narrative: APPEARANCE: No apparent distress. Head: atraumatic. EYES: EOMI, NOSE: Atraumatic NECK: Trachea midline RESPIRATORY: No increased rate of breathing CARDIOVASCULAR: RRR, ABDOMINAL: Non-distended MUSCULOSKELETAl: No obvious deformities NEURO: Alert. Cranial nerves 2-12 grossly intact. Sensation light touch, motor function cerebellar function intact for 4 extremities. Gait exam was normal. SKIN:: Warm, dry. Normal color PSYCHIATRIC: Normal affect Course Vital Signs Vital signs: Vital Signs Temperature 98.2 F 07/10/22 19:59 Pulse Rate 81 07/10/22 19:59 Respiratory Rate 16 07/10/22 19:59 Blood Pressure 130/98 H 07/10/22 19:59 Pulse Oximetry 100 07/10/22 19:59 Oxygen Delivery Room Air 07/10/22 19:59 Temperature 98.2 F 07/10/22 19:59 Pulse Rate 81 07/10/22 19:59 Respiratory Rate 16 07/10/22 19:59 Blood Pressure 130/98 H 07/10/22 19:59 Pulse Oximetry 100 07/10/22 19:59 Oxygen Delivery Room Air 07/10/22 19:59 Medical Decision Making MDM Narrative Medical decision making narrative: -Presentation:26-year-old female presenting with right-sided facial numbness. -DDX includes but is not limited to: Stroke, Bowles's palsy, medication side effect, somatic symptom disorder -Co-morbidities complicating care: psychiatric history, periodic limb movement disorder, endometriosis -Social determinants of health: patient works as and [employer] office and live
[2022-07-10 21:09] VITALS: BP 133/88; PULSE 78; RESP 15; O2SAT 100
== END 2022-07-10 21:10 | disposition home or self-care (01) ==
PROVIDERS: Emergency Provider Emergency Medicine; PCP Family Medicine
DX: R20.0 Anesthesia of skin (principal)
CPT/HCPCS: 99283

== ENCOUNTER 2022-07-21 09:49 | Outpatient (CLI) | payer OTHER, SELFPAY ==
--- NOTE | ~2022-07-21 | MR_ITS ---
MRI of the brain Clinical History: Migraine Technique: Axial and sagittal T1-weighted images were acquired. These were followed by axial T2-weigh kavitha, diffusion weighted, gradient, and FLAIR images. Findings: No abnormal signal seen in the brain parenchyma. No acute infarct, intracranial hemorrhage, or mass lesion. Ventricles and subarachnoid spaces are unremarkable. Orbits are unremarkable. Paranasal sinuses and m astoid air cells are clear. Major intracranial flow voids are intact. Sagittal midline structures are intact. IMPRESSION: Unremarkable exam. Reviewed, dictated and finalized at location M. IMPRESSION: Unremarkable exam.
== END 2022-07-21 09:50 | disposition home or self-care (01) ==
PROVIDERS: PCP Family Medicine; Visit Provider Physician Assistant Medical
DX: G43.909 Migraine, unspecified, not intractable, without status migrainosus (principal)
CPT/HCPCS: 70551

== ENCOUNTER → 2022-08-04 14:00 | Outpatient (CLI) | payer OTHER, SELFPAY ==
--- NOTE | ~2022-08-04 | XR_ITS ---
EXAMINATION: XR lumbar spine 2-3V DATE: 08/04/2022 14:38 INDICATION: Dorsalgia, unspecified. TECHNIQUE: 3 views of lumbar spine were obtained. COMPARISON: None. FINDINGS: There is 5 degrees dextrocurvature of thoracolumbar spine. Vertebral body heights and inter vertebral disc heights are normal. The facet joints are normal. IMPRESSION: 1. No etiology for the patient's symptoms. Reviewed, dictated and finalized at location E.
== END ==
PROVIDERS: PCP Family Medicine; Visit Provider Physician Assistant Medical
DX: M54.9 Dorsalgia, unspecified (principal)
CPT/HCPCS: 72100

== ENCOUNTER 2022-09-15 09:58 | Outpatient (CLI) | payer OTHER, SELFPAY ==
--- NOTE | 2022-09-15 11:15 | NEURO_ITS ---
Impression: Patient reports a history of bilateral lower extremity paresthesias. # Reduced CMAP amplitudes in the left peroneal motor nerve relative to the right side may be suggestive of isolated, axonal injury to the left peroneal nerve. The rest of the nerve conduction study is normal. # Normal needle/EMG. # Clinical correlation recommended. Nerve Conduction Studies Anti Sensory Summary Table Stim Site NR Peak (ms) P-T Amp (?V) Site1 Site2 Delta-P (ms) Dist (cm) Thaddeus (m/s) Left Sup Fibular Anti Sensory (Ant Lat Mall) 14 cm 3.6 8.4 14 cm Ant Lat Mall 3.6 16.0 44 Right Sup Fibular Anti Sensory (Ant Lat Mall) 14 cm 2.7 18.5 14 cm Ant Lat Mall 2.7 16.0 59 Left Sural Anti Sensory (Lat Mall) Calf 3.5 13.0 Calf Lat Mall 3.5 16.0 46 Right Sural Anti Sensory (Lat Mall) Calf 3.2 21.8 Calf Lat Mall 3.2 16.0 50 Motor Summary Table Stim Site NR Onset (ms) O-P Amp (mV) Site1 Site2 Delta-0 (ms) Dist (cm) Thaddeus (m/s) Left Peroneal Motor (Vastus Med) Ankle 4.2 0.7 Popit Ankle 10.3 43.0 42 Popit 14.5 0.6 B Fib Ankle 9.8 42.0 43 B Fib 14.0 0.4 Right Peroneal Motor (Vastus Med) Ankle 4.4 2.1 Popit Ankle 8.6 40.0 47 Popit 13.0 1.5 B Fib Ankle 6.6 30.0 45 B Fib 11.0 0.8 Left Tibial Motor (Abd Mahmood Brev) Ankle 4.1 9.3 Knee Ankle 9.2 41.0 45 Knee 13.3 6.5 Right Tibial Motor (Abd Mahmood Brev) Ankle 4.5 7.1 Knee Ankle 8.9 41.0 46 Knee 13.4 5.2 F Wave Studies NR F-Lat (ms) L-R F-Lat (ms) Left Peroneal (Mrkrs) (EDB) 51.56 0.47 Right Peroneal (Mrkrs) (EDB) 51.09 0.47 Left Tibial (Mrkrs) (Abd Hallucis) 51.49 0.55 Right Tibial (Mrkrs) (Abd Hallucis) 52.03 0.55 EMG Side Muscle Nerve Root Ins Act Fibs Amp Dur Recrt Comment Right AntTibialis Dp Br Fibular L4-5 Nml Nml Nml Nml Nml Right Gastroc Tibial S1-2 Nml Nml Nml Nml Nml Right Fibularis Long Sup Br Fibular L5-S1 Nml Nml Nml Nml Nml Right Flex Dig Long Tibial L5-S2 Nml Nml Nml Nml Nml Right Ext Dig Brev Dp Br Fibular L5, S1 Nml Nml Nml Nml Nml Left AntTibialis Dp Br Fibular L4-5 Nml Nml Nml Nml Nml Left Gastroc Tibial S1-2 Nml Nml Nml Nml Nml Left Fibularis Long Sup Br Fibular L5-S1 Nml Nml Nml Nml Nml Left Flex Dig Long Tibial L5-S2 Nml Nml Nml Nml Nml Left Ext Dig Brev Dp Br Fibular L5, S1 Nml Nml Nml Nml Nml MTDD
== END 2022-09-15 09:59 | disposition home or self-care (01) ==
LOC: ANHNEURO 10:00
PROVIDERS: PCP Family Medicine; Visit Provider Physician Assistant Medical
DX: R20.0 Anesthesia of skin (principal)
CPT/HCPCS: 95886; 95910

== ENCOUNTER 2023-06-23 06:39 | Outpatient (CLI) | payer OTHER, SELFPAY ==
--- NOTE | ~2023-06-23 | MR_ITS ---
EXAMINATION: MR brain IAC wo con DATE: 06/23/2023 07:31 INDICATION: Migraine, unspecified, not intractable. Facial numbness. TECHNIQUE: Magnetic resonance imaging (MRI) of the brain, brainstem, and internal auditory canals was performed without intravenous contrast. COMPARISON: Brain MRI 07/21/2022 FINDINGS: There is no intracranial hemorrhage, acute infarction, or abnormal intracranial mass lesion . The ventricles are normal in size. There is mild mucosal thickening in the paranasal sinuses. The o rbits are normal. The internal auditory canals, inner ears, tympanic cavities, and mastoid air cells are normal. IMPRESSION: 1. Normal brain. Reviewed, dictated and finalized at location A. IMPRESSION: 1. Normal brain.
== END 2023-06-23 06:40 | disposition home or self-care (01) ==
PROVIDERS: PCP Family Medicine; Visit Provider Physician Assistant Medical
DX: G43.909 Migraine, unspecified, not intractable, without status migrainosus (principal)
CPT/HCPCS: 70551